=== PATIENT | female | born 1950 | race Caucasian/White ===

== ENCOUNTER 2016-04-15 05:22 | Emergency (ER) | payer OTHER ==
[~2016-04-15] VITALS: Ht 167.6 cm; Wt 86.4 kg
[~2016-04-15 05:22] MED LIST: ACT300 PO; ASPI325T39 PO; CLS1 PO; DEXL60CA4 PO; MULT-506 PO; OMEG10007 PO
[2016-04-15 05:27] VITALS: TEMP 36.5; Ht 167.6 cm; Wt 86.4 kg
[2016-04-15] MEDS ORDERED: ACETAMINOPHEN 500 MG TAB PO STA (05:37)
[2016-04-15] MEDS ORDERED: DiphenhydrAMINE HCL 50 MG/ML VIAL IV STA (05:37)
[2016-04-15] MEDS ORDERED: KETOROLAC TROMETHAMINE 30 MG/ML VIAL IV STA (05:37)
[2016-04-15] MEDS ORDERED: PROCHLORPERAZINE 5 MG/ML 2 ML VIAL IV STA (05:37)
[2016-04-15] MEDS ORDERED: SODIUM CHLORIDE 0.9% 1000ML 1,000 ML IV STA (05:37)
--- NOTE | 2016-04-15 05:42 | EMERGENCY ROOM VISIT NOTE ---
History Report prepared by Johnathan: Janeth Nieto Under the Supervision of: Dr. Wang Hinds M.D. First contact with patient: 05:27 Chief Complaint: HEADACHE Stated Complaint: HEADACHE,NAUSEA History of Present Illness The patient is a 65 year old female who presents to the Emergency Room with complaints of a constant headache beginning [employer]. The patient woke up this morning with a headache in the back of her head. She describes it as severe and rates her pain as a 6/10. She reports some double vision and nausea. She also had "a funny taste" in her mouth. She took her blood pressure and it was slightly elevated at 180/110. The patient denies any numbness or weakness of the extremities. She does not have a history of migraines. Source of History: patient Onset: [employer] Position: head Symptom Intensity: 6/10 Timing: constant Associated Symptoms: + nausea, No numbness, No weakness Note: Pt notes double vision. Review of Systems See HPI for pertinent positives & negatives. A total of 10 systems reviewed and were otherwise negative. Past Medical & Surgical Medical Problems: (1) GERD (gastroesophageal reflux disease) (2) Hyperlipemia Surgical Problems: (1) History of cholecystectomy (2) History of hysterectomy (3) History of neck surgery Family History Hypertension Social History Smoking Status: Never Smoker Alcohol Use: none Drug Use: none Marital Status: Housing Status: lives with family Occupation Status: other Current/Historical Medications Scheduled Aspirin (Aspirin Ec), 325 MG PO BID Colestipol Hcl (Colestid *), 1 GM PO BID Dexlansoprazole (Dexilant), 60 MG PO DAILY Fish Oil ([place]-3), 1 CAP PO DAILY Multivitamin (Multivitamin), 1 TAB PO DAILY Pediatric Multiple Vitamin W/ (Flintstones Gummies), 2 PO DAILY Ursodiol (Actigall *), 600 MG PO BID Scheduled PRN Clonidine Hcl (Catapres), 1 TAB PO BID PRN for BP > 160 Hydrocodone/Acetaminophen 5MG/325MG ([place] 5MG/325MG), 1 TAB PO DAILY PRN for Pain Allergies Coded Allergies: Adhesives (Verified Allergy, Unknown, RASH, 01/07/15) Latex1 -Allergic Contact Dermititis (Verified Allergy, Unknown, UNKNOWN, 01/07/15) Nitrofurantoin (Verified Adverse Reaction, Unknown, STOMACH UPSET, ) Physical Exam Vital Signs Date Time Temp Pulse Resp B/P Pulse Ox O2 Delivery O2 Flow Rate FiO2 04/15/16 06:48 80 20 140/95 96 Room Air 04/15/16 06:41 82 20 159/98 96 Room Air 04/15/16 05:27 36.5 96 20 172/109 96 Room Air Physical Exam CONSTITUTIONAL: Moderate painful distress. HEENT: No icterus, moist mucous membranes NECK: No meningismus, trachea is midline. CARDIOVASCULAR: Regular rate, normal perfusion RESPIRATORY: Unlabored breathing. Clear to auscultation. GASTROINTESTINAL: Non-tender GENITOURINARY: No flank tenderness MUSCULOSKELETAL: Full range of motion NEUROLOGIC: No acute gross focal deficits. PSYCHIATRIC: Normal affect SKIN: Normal for ethnicity. Medical Decision & Procedures ER Provider Diagnostic Interpretation: Radiology results as stated below per my review and radiologist interpretation. CT HEAD: No ICH, mass effect or edema. No evidence of acute cortical stroke. Visualized sinuses and mastoid air cells are clear. Radiologist: Steve Smith MD Laboratory Results 04/15/16 05:45 Red Blood Count 4.87, Mean Corpuscular Volume 87.9, Mean Corpuscular Hemoglobin 30.8, Mean Corpuscular Hemoglobin Concent 35.0, Mean Platelet Volume 9.6, Neutrophils (%) (Auto) 53.6, Lymphocytes (%) (Auto) 35.6, Monocytes (%) (Auto) 8.2, Eosinophils (%) (Auto) 2.2, Basophils (%) (Auto) 0.2, Neutrophils # (Auto) 2.68, Lymphocytes # (Auto) 1.78, Monocytes # (Auto) 0.41, Eosinophils # (Auto) 0.11, Basophils # (Auto) 0.01 04/15/16 05:45 Test 04/15/16 05:45 White Blood Count 5.00 K/uL (4.8-10.8) Red Blood Count 4.87 M/uL (4.2-5.4) Hemoglobin 15.0 g/dL (12.0-16.0) Hematocrit 42.8 % (37-47) Mean Corpuscular Volume 87.9 fL (80-100) Mean Corpuscular Hemoglobin 30.8 pg (25-34) Mean Corpuscular Hemoglobin Concent 35.0 g/dl (32-36) Platelet Count 194 K/uL (130-400) Mean Platelet Volume 9.6 fL (7.4-10.4) Neutrophils (%) (Auto) 53.6 % Lymphocytes (%) (Auto) 35.6 % Monocytes (%) (Auto) 8.2 % Eosinophils (%) (Auto) 2.2 % Basophils (%) (Auto) 0.2 % Neutrophils # (Auto) 2.68 K/uL (1.4-6.5) Lymphocytes # (Auto) 1.78 K/uL (1.2-3.4) Monocytes # (Auto) 0.41 K/uL (0.11-0.59) Eosinophils # (Auto) 0.11 K/uL (0-0.5) Basophils # (Auto) 0.01 K/uL (0-0.2) RDW Standard Deviation 40.6 fL (36.4-46.3) RDW Coefficient of Variation 12.6 % (11.5-14.5) Immature Granulocyte % (Auto) 0.2 % Immature Granulocyte # (Auto) 0.01 K/uL (0.00-0.02) Anion Gap 10.0 mmol/L (3-11) Est Creatinine Clear Calc Drug Dose 67.1 ml/min Estimated GFR () 76.7 Estimated GFR (Non- 66.2 BUN/Creatinine Ratio 11.5 (10-20) Calcium Level 9.0 mg/dl (8.5-10.1) Labs reviewed by ED physician. Medications Administered Medications (Trade) Dose Ordered Sig/Ana Rosa Route Start Time Stop Time Status Last Admin Dose Admin Acetaminophen 1000 mg 1,000 mg NOW STAT PO 04/15/16 05:37 04/15/16 05:39 DC 04/15/16 05:56 1,000 MG Sodium Chloride (Nss 1000ml) 1,000 ml @ 0 mls/hr Q0M STAT IV 04/15/16 05:37 04/15/16 05:39 DC 04/15/16 05:55 999 MLS/HR Prochlorperazine Edisylate (Compazine Inj) 10 mg NOW STAT IV 04/15/16 05:37 04/15/16 05:39 DC 04/15/16 05:55 10 MG Diphenhydramine HCl (Benadryl Inj) 25 mg NOW STAT IV 04/15/16 05:37 04/15/16 05:39 DC 04/15/16 05:55 25 MG Ketorolac Tromethamine (Toradol Inj) 15 mg NOW STAT IV 04/15/16 05:37 04/15/16 05:39 DC 04/15/16 05:55 15 MG ECG Indication: nausea Rate (beats per minute): 80 Rhythm: normal sinus Findings: nonspecific-ST abn, other (normal axis ) ED Course 05: Past medical records reviewed. The patient was evaluated in room A2. A complete history and physical examination was performed. 0537: Toradol 15 mg IV, Benadryl 25 mg IV, Compazine 10 mg IV, NSS 1000 ml IV wide open, Tylenol 1000 mg PO 0641: I reassessed the patient at this time. She is feeling better and resting comfortably. Her symptoms have resolved. I discussed the results and treatment plan with the patient. I answered all pertaining questions that she had. She expressed understanding and verbalized agreement. The patient will be discharged home. Medical Decision Differential diagnoses includes intracranial bleed, migraine, stroke. 65-year-old presents to the emergency department complaining of moderate headache which awoke her from sleep. She is concerned about high blood pressure and it was noted to be 170/100 on arrival. She was medicated for pain on reexamination at 6:30 AM she reports her symptoms have resolved. Review of old pressure 150/100. I discussed the importance of taking Tylenol motion every 6 hours as needed for pain and a prescription for clonidine 0.1 mg when necessary systolic blood pressure greater than 160 was provided. She understands to return the emergency room for any worsening or worrisome symptoms such as focal numbness weakness with difficulty speaking. She understands to follow-up with her doctor this week. Impression Primary Impression: Headache Additional Impression: Hypertension Scribe Attestation The scribe's documentation has been prepared under my direction and personally reviewed by me in its entirety. I confirm that the note above accurately reflects all work, treatment, procedures, and medical decision making performed by me. Departure Information Dispostion Home / Self-Care Prescriptions Clonidine Hcl (CATAPRES) 0.1 Mg Tab 1 TAB PO BID Y for BP > 160 for 10 Days, #20 TAB 1 Refill Prov: Wang Hinds MD 04/15/16 Referrals Mali Hernadez M.D. (PCP) Olga Stover D.OFiorella Forms HOME CARE DOCUMENTATION FORM, IMPORTANT VISIT INFORMATION Patient Instructions ED Hypertension Poss, Headache Pain, My [facility] Health Problem Qualifiers Primary Impression: Headache Headache type: unspecified Headache chronicity pattern: acute headache Intractability: not intractable Qualified Codes: R51 - Headache Additional Impression:
[2016-04-15 05:58] LABS: BASO % 0.2 %; BASO ABS # 0.01 K/uL (0-0.2); COMPLETE YES; EOS % 2.2 %; HEMATOCRIT 42.8 % (37-47); IG% 0.2 %; LYMPH % 35.6 %; LYMPH ABS # 1.78 K/uL (1.2-3.4); MEAN CELL VOLUME 87.9 fL (80-100); MEAN CORPUSCULAR HEMOGLOBIN 30.8 pg (25-34); MEAN PLATELET VOLUME 9.6 fL (7.4-10.4); MONO % 8.2 %; NEUT % 53.6 %; PLATELET COUNT 194 K/uL (130-400); RED BLOOD COUNT 4.87 M/uL (4.2-5.4)
[2016-04-15 06:28] LABS: BUN/CREATININE RATIO 11.5 (10-20); CREATININE 0.9 mg/dl (0.60-1.20); POTASSIUM 3.7 mmol/L (3.5-5.1)
[2016-04-15] MEDS ORDERED: CLON0.1T12 PO (06:44)
[2016-04-15] MEDS ORDERED: HYDR-5688 PO (06:47)
[2016-04-15 06:48] VITALS: BP 140/95; PULSE 80; O2SAT 96
[2016-04-15] MEDS ORDERED: PEDICHW53 PO (06:51)
[2016-04-15] MEDS ORDERED: PROP15TA PO (06:53)
[2016-04-15] MEDS ORDERED: OMEG1CHW PO (06:55)
--- NOTE | 2016-04-15 07:24 | DIAGNOSTIC IMAGING REPORT ---
HEAD CT NONCONTRAST CT DOSE: 614.27 mGy.cm HISTORY: Mental status change CONTE TECHNIQUE: Multiaxial CT images of the head were performed without the use of intravenous contrast. Comparison: None. Findings: The paranasal sinuses and mastoid air cells are clear. The calvarium and skull base are intact. The ventricles and sulci are within normal limits. There is no mass, hematoma, midline shift, or acute infarct. Impression: No acute intracranial abnormality. Electronically signed by: Zach Matos M.D. 04/15/2016 7:22 AM Dictated Date/Time: 04/15/2016 7:22 AM
== END 2016-04-15 06:56 | disposition home or self-care (01) ==
LOC: C.EDB 05:23 → C.EDA 06:56
DX: R51 Headache (principal); I10 Essential (primary) hypertension; H53.2 Diplopia; R11.0 Nausea; K21.9 Gastro-esophageal reflux disease without esophagitis; E78.5 Hyperlipidemia, unspecified; Z79.82 Long term (current) use of aspirin; Z79.899 Other long term (current) drug therapy; Z88.8 Allergy status to other drugs, medicaments and biological substances; Z91.040 Latex allergy status; Z82.49 Family history of ischemic heart disease and other diseases of the circulatory system

== ENCOUNTER 2016-05-13 16:24 | Emergency (ER) | payer OTHER ==
[~2016-05-13] VITALS: Ht 167.6 cm; Wt 85.3 kg
[~2016-05-13 16:24] MED LIST changes: -ASPI325T39 PO; +CLON0.1T12 PO; +HYDR-5688 PO; -MULT-506 PO; -OMEG10007 PO; +OMEG1CHW PO; +PEDICHW53 PO; +PROP15TA PO
[2016-05-13 16:27] VITALS: TEMP 36.7; Ht 167.6 cm; Wt 85.3 kg
[2016-05-13] MEDS ORDERED: MoRPHine SULFATE 4 MG/ML 1 ML CARP\\VIAL IV STA (17:01)
[2016-05-13] MEDS ORDERED: ONDANSETRON INJ 2 MG/ML 2 ML VIAL IV STA (17:01)
[2016-05-13] MEDS ORDERED: SODIUM CHLORIDE 0.9% 1000ML 1,000 ML IV STA (17:01)
[2016-05-13 17:08] LABS: COMPLETE YES; EOS % 1.9 %; IG% 0.3 %; LYMPH % 38.3 %; LYMPH ABS # 2.57 K/uL (1.2-3.4); MEAN CELL VOLUME 87.3 fL (80-100); MEAN CORPUSCULAR HGB CONC 35.5 g/dl (32-36); MEAN PLATELET VOLUME 9.7 fL (7.4-10.4); NEUT % 49.5 %; PLATELET COUNT 211 K/uL (130-400); RED BLOOD COUNT 5.04 M/uL (4.2-5.4); WHITE BLOOD COUNT 6.71 K/uL (4.8-10.8)
[2016-05-13] MEDS ORDERED: OPTIRAY 320 IV PRN (17:15)
[2016-05-13 17:17] LABS: URINE APPEARANCE CLEAR (CLEAR); URINE BILIRUBIN NEG (NEG); URINE COLOR YELLOW; URINE NITRITE NEG (NEG); URINE SPECIFIC GRAVITY 1.007 (1.000-1.030); UROBILINOGEN NEG (NEG); ZZUR CULT IF INDIC CLEAN CATCH YES
[2016-05-13 17:18] LABS: MANUAL MICROSCOPIC REQUIRED? NO; REVIEW REQ? NO
[2016-05-13] MEDS ORDERED: COLE1TAB5 PO (17:19)
[2016-05-13] MEDS ORDERED: ACT300 PO (17:19)
[2016-05-13 17:25] LABS: BUN/CREATININE RATIO 8.9 (10-20); CALCIUM 9.1 mg/dl (8.5-10.1); CREATININE 0.85 mg/dl (0.60-1.20); POTASSIUM 3.8 mmol/L (3.5-5.1)
--- NOTE | 2016-05-13 19:03 | DIAGNOSTIC IMAGING REPORT ---
CT SCAN OF THE ABDOMEN AND PELVIS WITH IV CONTRAST CLINICAL HISTORY: Left lower quadrant abdominal pain. COMPARISON STUDY: Abdominal CT dated 09/20/2008. TECHNIQUE: Following the IV administration of 115 cc of Optiray 320, CT scan of the abdomen and pelvis is performed from the lung bases to the proximal femora. Images are reviewed in the axial, sagittal, and coronal planes. IV contrast was administered without complication. Automated dose control exposure was utilized. CT DOSE: 577.52 mGy.cm FINDINGS: Lung bases: The heart is normal in size and without pericardial effusion. The lung bases are clear. Liver: The contrast-enhanced liver is enlarged, measuring 19.2 cm in length. The liver demonstrates diffusely diminished attenuation consistent with hepatic steatosis. There is minimal central intrahepatic biliary ductal dilatation. The hepatic veins and portal veins are patent. Gallbladder: Surgically absent noting clips in the gallbladder fossa. Spleen: Normal in size and attenuation. Pancreas: Unremarkable. Adrenal glands: Unremarkable. Kidneys: The contrast enhanced kidneys are normal in size and without hydronephrosis. The kidneys enhance symmetrically. Abdominal vasculature: The abdominal aorta is normal in course and caliber noting mild atherosclerotic calcification. Bowel: There is no bowel obstruction. There are scattered colonic diverticula without CT evidence of acute diverticulitis. The appendix is not identified. Peritoneum: There is no intraperitoneal free air or abdominal ascites. There is a small fat-containing umbilical hernia. There is a small lipoma in the musculature of the left lower back seen on image #63. Lymphadenopathy: None. Pelvic viscera: The bladder is normal as visualized. The uterus is surgically absent. No adnexal lesion is seen. There are numerous calcified pelvic phleboliths. Skeletal structures: The skeletal structures are osteopenic. There is mild to moderate lumbosacral spondylosis. There is reversal of the lumbar lordosis centered at L2. No lytic or blastic lesions are seen. IMPRESSION: 1. There are no acute infectious or inflammatory findings in the abdomen or pelvis. 2. Hepatomegaly and hepatic steatosis. 3. There are scattered colonic diverticula without CT evidence of acute diverticulitis. 4. Additional findings as above. Electronically signed by: Bar Florez M.D. 05/13/2016 7:02 PM Dictated Date/Time: 05/13/2016 6:56 PM
[2016-05-13 19:57] VITALS: BP 162/86; PULSE 66; O2SAT 97
--- NOTE | 2016-05-13 19:59 | EMERGENCY ROOM VISIT NOTE ---
History Report prepared by Johnathan: Ольга Mackay Under the Supervision of: Dr. Balwinder Ervin D.O. First contact with patient: 16:30 Chief Complaint: ABDOMINAL PAIN Stated Complaint: ABDOMINAL PAIN History of Present Illness The patient is a 65 year old female who presents to the Emergency Room with complaints of constant sharp lower abdominal pain beginning 3 days ago. The patient states that she has had this pain before when she had pancreatitis. She notes that she was not doing anything when it started. She complains of a loss of appetite and increased frequency of urination. The patient states that she gets UTI's often and thought she had one so she saw her doctor and it game back with a pathogen that she can't remember so she has been taking an antibiotic. She denies any chest pain, cough, runny nose, radiation of pain, burning with urination, bloody stool, and black stool. She notes that nothing makes her pain better or worse. The patient reports that she had a bladder infection 3 weeks ago and states that she has a history of cholecystectomy and hysterectomy. The patient rates her pain as a 5/10 in severity. She notes that she thinks she has had her appendix out but is not sure. She reports that nothing makes her pain better or worse. Source of History: patient Onset: 3 days ago Position: abdomen Symptom Intensity: 5/10 Quality: sharp Timing: constant Modifying Factors (Worsening): other (none) Modifying Factors (Relieving): other (noen) Associated Symptoms: No chest pain, No cough Note: She complains of a loss of appetite and increased frequency of urination. She denies any runny nose, radiation of pain, burning with urination, bloody stool, and black stool. Review of Systems See HPI for pertinent positives & negatives. A total of 10 systems reviewed and were otherwise negative. Past Medical & Surgical Medical Problems: (1) GERD (gastroesophageal reflux disease) (2) Hyperlipemia Surgical Problems: (1) History of cholecystectomy (2) History of hysterectomy (3) History of neck surgery Family History Hypertension Social History Smoking Status: Never Smoker Alcohol Use: none Drug Use: none Marital Status: Housing Status: lives with family Occupation Status: other Current/Historical Medications Scheduled Colestipol Hcl (Colestipol Hcl), 1 GM PO BID Dexlansoprazole (Dexilant), 60 MG PO DAILY Pyote 3 Fatty Acids-Pyote 6 FA (Pyote Dha), 2 TABS PO DAILY Pediatric Multiple Vitamin W/ (Flintstones Gummies), 2 PO DAILY Ursodiol (Ursodiol), 600 MG PO BID Allergies Coded Allergies: Adhesives (Verified Allergy, Unknown, RASH, 05/13/16) Latex1 -Allergic Contact Dermititis (Verified Allergy, Unknown, UNKNOWN, ) Nitrofurantoin (Verified Adverse Reaction, Unknown, STOMACH UPSET, 05/13/16) Physical Exam Vital Signs Date Time Temp Pulse Resp B/P Pulse Ox O2 Delivery O2 Flow Rate FiO2 05/13/16 19:57 66 18 162/86 97 05/13/16 17:59 70 20 122/85 98 Room Air 05/13/16 17:13 76 20 143/78 98 05/13/16 16:27 36.7 80 18 160/106 97 Room Air Physical Exam GENERAL: sitting up in bed, disheveled, uncomfortable EYE EXAM: normal conjunctiva OROPHARYNX: no exudate, no erythema, lips, buccal mucosa, and tongue normal and mucous membranes are moist NECK: supple, no nuchal rigidity, no adenopathy, non-tender LUNGS: Clear to auscultation. Normal chest wall mechanics HEART: no murmurs, S1 normal and S2 normal ABDOMEN: abdomen soft, tender to palpation infraumbilical to the LLQ, normo- active bowel sounds, no masses, no rebound or guarding. BACK: Back is symmetrical on inspection and there is no deformity, no midline tenderness, no CVA tenderness. SKIN: no rashes and no bruising UPPER EXTREMITIES: upper extremities are grossly normal. LOWER EXTREMITIES: No pitting edema. NEURO EXAM: Normal sensorium, cranial nerves II-XII grossly intact, normal speech, no gross weakness of arms, no gross weakness of legs. Medical Decision & Procedures ER Provider Diagnostic Interpretation: CT:Per my review, radiologist interpretation. CT SCAN OF THE ABDOMEN AND PELVIS WITH IV CONTRAST CT DOSE: 577.52 mGy.cm FINDINGS: Lung bases: The heart is normal in size and without pericardial effusion. The lung bases are clear. Liver: The contrast-enhanced liver is enlarged, measuring 19.2 cm in length. The liver demonstrates diffusely diminished attenuation consistent with hepatic steatosis. There is minimal central intrahepatic biliary ductal dilatation. The hepatic veins and portal veins are patent. Gallbladder: Surgically absent noting clips in the gallbladder fossa. Spleen: Normal in size and attenuation. Pancreas: Unremarkable. Adrenal glands: Unremarkable. Kidneys: The contrast enhanced kidneys are normal in size and without hydronephrosis. The kidneys enhance symmetrically. Abdominal vasculature: The abdominal aorta is normal in course and caliber noting mild atherosclerotic calcification. Bowel: There is no bowel obstruction. There are scattered colonic diverticula without CT evidence of acute diverticulitis. The appendix is not identified. Peritoneum: There is no intraperitoneal free air or abdominal ascites. There is a small fat-containing umbilical hernia. There is a small lipoma in the musculature of the left lower back seen on image #63. Lymphadenopathy: None. Pelvic viscera: The bladder is normal as visualized. The uterus is surgically absent. No adnexal lesion is seen. There are numerous calcified pelvic phleboliths. Skeletal structures: The skeletal structures are osteopenic. There is mild to moderate lumbosacral spondylosis. There is reversal of the lumbar lordosis centered at L2. No lytic or blastic lesions are seen. IMPRESSION: 1. There are no acute infectious or inflammatory findings in the abdomen or pelvis. 2. Hepatomegaly and hepatic steatosis. 3. There are scattered colonic diverticula without CT evidence of acute diverticulitis. 4. Additional findings as above. Electronically signed by: Bar Florez M.D. 05/13/2016 7:02 PM Dictated Date/Time: 05/13/2016 6:56 PM Laboratory Results 05/13/16 16:50 Red Blood Count 5.04, Mean Corpuscular Volume 87.3, Mean Corpuscular Hemoglobin 31.0, Mean Corpuscular Hemoglobin Concent 35.5, Mean Platelet Volume 9.7, Neutrophils (%) (Auto) 49.5, Lymphocytes (%) (Auto) 38.3, Monocytes (%) (Auto) 10.0, Eosinophils (%) (Auto) 1.9, Basophils (%) (Auto) 0.0, Neutrophils # (Auto ) 3.32, Lymphocytes # (Auto) 2.57, Monocytes # (Auto) 0.67, Eosinophils # (Auto ) 0.13, Basophils # (Auto) 0.00 05/13/16 16:50 Test 05/13/16 16:50 White Blood Count 6.71 K/uL (4.8-10.8) Red Blood Count 5.04 M/uL (4.2-5.4) Hemoglobin 15.6 g/dL (12.0-16.0) Hematocrit 44.0 % (37-47) Mean Corpuscular Volume 87.3 fL (80-100) Mean Corpuscular Hemoglobin 31.0 pg (25-34) Mean Corpuscular Hemoglobin Concent 35.5 g/dl (32-36) Platelet Count 211 K/uL (130-400) Mean Platelet Volume 9.7 fL (7.4-10.4) Neutrophils (%) (Auto) 49.5 % Lymphocytes (%) (Auto) 38.3 % Monocytes (%) (Auto) 10.0 % Eosinophils (%) (Auto) 1.9 % Basophils (%) (Auto) 0.0 % Neutrophils # (Auto) 3.32 K/uL (1.4-6.5) Lymphocytes # (Auto) 2.57 K/uL (1.2-3.4) Monocytes # (Auto) 0.67 K/uL (0.11-0.59) Eosinophils # (Auto) 0.13 K/uL (0-0.5) Basophils # (Auto) 0.00 K/uL (0-0.2) RDW Standard Deviation 42.0 fL (36.4-46.3) RDW Coefficient of Variation 13.2 % (11.5-14.5) Immature Granulocyte % (Auto) 0.3 % Immature Granulocyte # (Auto) 0.02 K/uL (0.00-0.02) Urine Color YELLOW Urine Appearance CLEAR (CLEAR) Urine pH 6.0 (4.5-7.5) Urine Specific [place] 1.007 (1.000-1.030) Urine Protein NEG (NEG) Urine Glucose (UA) NEG (NEG) Urine Ketones NEG (NEG) Urine Occult Blood NEG (NEG) Urine Nitrite NEG (NEG) Urine Bilirubin NEG (NEG) Urine Urobilinogen NEG (NEG) Urine Leukocyte Esterase LARGE (NEG) Urine WBC (Auto) >30 /hpf (0-5) Urine RBC (Auto) 0-4 /hpf (0-4) Urine Hyaline Casts (Auto) 1-5 /lpf (0-5) Urine Epithelial Cells (Auto) 10-20 /lpf (0-5) Urine Bacteria (Auto) NEG (NEG) Urine Test NEG (NEG) Anion Gap 10.0 mmol/L (3-11) Est Creatinine Clear Calc Drug Dose 70.6 ml/min Estimated GFR () 82.2 Estimated GFR (Non- 70.9 BUN/Creatinine Ratio 8.9 (10-20) Calcium Level 9.1 mg/dl (8.5-10.1) Total Bilirubin 0.5 mg/dl (0.2-1) Direct Bilirubin 0.1 mg/dl (0-0.2) Aspartate Amino Transf (AST/SGOT) 26 U/L (15-37) Alanine Aminotransferase (ALT/SGPT) 40 U/L (12-78) Alkaline Phosphatase 98 U/L (45-117) Total Protein 7.9 gm/dl (6.4-8.2) Albumin 4.0 gm/dl (3.4-5.0) Lipase 224 U/L (73-393) Laboratory results per my review. Medications Administered Medications (Trade) Dose Ordered Sig/Ana Rosa Route Start Time Stop Time Status Last Admin Dose Admin Sodium Chloride (Nss 1000ml) 1,000 ml @ 999 mls/hr Q1H1M STAT IV 05/13/16 17:01 05/13/16 18:01 DC 05/13/16 17:06 999 MLS/HR Morphine Sulfate (MoRPHine SULFATE INJ) 4 mg NOW STAT IV 05/13/16 17:01 05/13/16 17:03 DC 05/13/16 17:08 4 MG Ondansetron HCl (Zofran Inj) 4 mg NOW STAT IV 05/13/16 17:01 05/13/16 17:03 DC 05/13/16 17:07 4 MG ED Course ED COURSE: Vital signs were reviewed and normal The patients medical record was reviewed The above diagnostic studies were performed and reviewed. ED treatments and interventions as stated above. 1630: The patient was evaluated in room B5. A complete history and physical examination was performed. 1701: Zofran Inj 4mg IV, Morphine Sulfate 4mg IV, Sodium Chloride 1000 ml @ 999 mls/hr IV. 1943: I reevaluated the patient. She is feeling better. 1999: Upon reevaluation, the patient is hemodynamically stable.I discussed my findings with the patient and she understands and agrees with the treatment plan. Based on the patients age, coexisting illnesses, exam and lab findings the decision to treat as an outpatient was made. The patient remained stable while under my care. The patient appeared well at the time of discharge. Medical Decision Differential diagnoses includes but is not limited to gastritis, peptic ulcer disease, GERD, gallbladder disease, pancreatitis, small bowel obstruction, acute coronary syndrome, pericarditis, ischemic bowel, irritable bowel disease, irritable bowel syndrome, appendicitis, diverticulitis, malignancy, hernia, urinary tract infection, torsion, perforation, trauma, infectious. Patient is a 65-year-old female that presents the ER for abdominal pain. This is been present for the past 3 days in the lower abdomen. She has of this feels like her previous pancreatitis per she has a previous cholecystectomy and complete hysterectomy. She takes she also has her appendix removed. No fevers greater than 100.4, she is able to eat and drink without the culture. Labs show no significant leukocytosis or anemia. BMP along with LFTs, bilirubin and lipase is unremarkable. UA had a large amount of leukocytes with greater than 30 white cells. Patient notes that she has no dysuria, urgency or frequency which consistent with a UTI. She is urinary culture which is pending since Sunday. She does not want to start antibiotics at this time and would prefer to wait for urine culture. Patient was given a dose of morphine and fluids. She is discharged follow-up with her primary care doctor following a negative CT scan of her abdomen. Discussed with Pt concerning signs and symptoms to watch out for. Pt was instructed to follow up with their PCP and discussed with the patient their option to return to the ED at anytime for persistent or worsening symptoms. The appropriate anticipatory guidance and out-patient management, including indications for return to the emergency department, were explained at length to the patient and understood. Impression Primary Impression: Lower abdominal pain Scribe Attestation The scribe's documentation has been prepared under my direction and personally reviewed by me in its entirety. I confirm that the note above accurately reflects all work, treatment, procedures, and medical decision making performed by me. Departure Information Dispostion Home / Self-Care Referrals Olga Stover D.O. (PCP) Forms HOME CARE DOCUMENTATION FORM, IMPORTANT VISIT INFORMATION Patient Instructions Abdominal Pain - [facility], [facility] Additional Instructions Please follow up with your primary care doctor with in the next 24 hours. Any worsening of your symptoms, please return to the ED immediately. This includes fevers greater than 100.4, persistent nausea vomiting, worsening pain, passing out, blood in her stool, or any other concerning signs or symptoms from your standpoint.
== END 2016-05-13 19:57 | disposition home or self-care (01) ==
LOC: C.EDB 16:25
DX: R10.30 Lower abdominal pain, unspecified (principal); K21.9 Gastro-esophageal reflux disease without esophagitis; E78.5 Hyperlipidemia, unspecified; Z79.899 Other long term (current) drug therapy

== ENCOUNTER 2018-11-02 11:41 | Observation (INO) ==
--- OUTSIDE RECORDS SUMMARY | 2018-11-02 11:44 | External Medical Summary | Continuity of Care Document ---
:1950 Author Name Meera Billy Address Unavailable Unavailable , Care Team Providers Name Role Phone Moise Billy Unavailable [email or web address] [email or web address], A Unavailable Unavailable Unavailable Unavailable Unavailable Problems Cutaneous skin tags (701.9) (L91.8) Seborrheic dermatitis (690.10) (L21.9) Actinic keratosis (702.0) (L57.0) Allergies and Adverse Reactions No Known Drug Allergies (Allergy) Medications Dexilant CPDR Refills: 0 Ursodiol TABS Refills: 0 Colestipol HCl TABS Refills: 0 Ketoconazole 2 % External Shampoo; USE 2X/WEEK CHATO Da Silva Start: 03-Aug-2016 Quantity: 1 120 ML Bottle Refills: 2 Ketoconazole 2 % External Shampoo; USE 2X/WEEK Mirta Phipps Start: 03-Aug-2016 Quantity: 1 120 ML Bottle Refills: 5 Procedures Procedures not documented Immunizations Immunizations not documented Plan of Treatment Planned Observations Planned Goals not documented Results No Known Results Results not documented Encounters Appointment; Zach Phipps M.D. 18-Dec-2016 14:10 Encounter Diagnosis: Problem not documented
[2018-11-02] MEDS ORDERED: ASPIRIN CHEW 324 MG PO STA (11:53)
[2018-11-02 12:14] LABS: Basophils # (auto) 0.02 K/uL (0-0.2); Basophils % (auto) 0.3 %; Eosinophils # (auto) 0.17 K/uL (0-0.5); Eosinophils % (auto) 2.7 %; Hematocrit (blood only) 45.8 % (37-47); Hemoglobin 15.8 g/dL (12.0-16.0); Immature Granulocytes # (auto) 0.01 K/uL (0.00-0.02); Immature Granulocytes % (auto) 0.2 %; Lymphocytes # (auto) 2.46 K/uL (1.2-3.4); Lymphocytes % (auto) 38.6 %; Mean Corpuscular Hemoglobin 31.1 pg (25-34); Mean Corpuscular Hgb Conc 34.5 g/dL (32-36); Mean Corpuscular Volume 90.2 fL (80-100); Mean Platelet Volume 9.8 fL (7.4-10.4); Monocytes # (auto) 0.49 K/uL (0.11-0.59); Monocytes % (auto) 7.7 %; Neutrophils # (auto) 3.22 K/uL (1.4-6.5); Neutrophils % (auto) 50.5 %; Platelet Count 213 K/uL (130-400); RDW Standard Deviation 42.5 fL (36.4-46.3); Red Blood Count 5.08 M/uL (4.2-5.4); White Blood Count 6.37 K/uL (4.8-10.8)
--- NOTE | 2018-11-02 12:24 | XRay Report ---
XR chest 1V portable CLINICAL HISTORY: Chest Pain COMPARISON STUDY: Chest radiograph August 14, 2012. FINDINGS: Lung volumes are normal. Lungs are clear. There is no pneumothorax or pleural effusion. Car diac size is normal. Mediastinal contours are normal. There is no evidence for pulmonary edema. Patie nt is mildly rotated. IMPRESSION: No acute cardiopulmonary findings. Electronically signed by: Mohit Leos M.D. 11/02/2018 12:23 PM
[2018-11-02 12:31] LABS: Alanine Aminotransferase 56 U/L (12-78); Albumin Level 4.2 gm/dl (3.4-5.0); Aspartate Aminotransferase 46 U/L (15-37); BUN Creatinine Ratio 8.3 (10-20); Blood Urea Nitrogen 8 mg/dl (7-18); Calcium 9.3 mg/dl (8.5-10.1); Carbon Dioxide 27 mmol/L (21-32); Chloride 106 mmol/L (98-107); Creatinine Clr Calc Pharmacy 59.7 ml/min; Est GFR (African American) 71.2; Est GFR (Non-African American) 61.5; Glucose 101 mg/dl (70-99); Lipase 254 U/L (73-393); Potassium 3.9 mmol/L (3.5-5.1); Sodium 141 mmol/L (136-145)
[2018-11-02 12:36] LABS: Alkaline Phosphatase 111 U/L (45-117); Bilirubin,Total 0.4 mg/dl (0.2-1); Globulin 4.2 gm/dl (2.5-4.0); Total Protein 8.4 gm/dl (6.4-8.2); Troponin I < 0.015 ng/ml (0-0.045)
[2018-11-02 12:59] LABS: D Dimer 390 ug/L FEU (0-500); Partial Thromboplastin Ratio 0.9; Partial Thromboplastin Time 24.5 Seconds (21.0-31.0)
[2018-11-02] MEDS ORDERED: GI COCKTAIL ED USE PO ONE (13:39)
--- NOTE | 2018-11-02 15:38 | History & Physical Report ---
Date of Service November 02, 2018 Assessment & Plan (1) Chest pain: Atypical symptoms since exerting herself yesterday that may be concerning for ACS. She describes the recent fatigue, and chest pressure sensation that is constant since yesterday where when she takes a deep breath, she feels like she can't fully inflate her lungs. She describes the sensation of choking associated with this. No other associated symptoms are present. Age and dyslipidemia are risk factors. No early CAD in family but father did have an CT in his 70s, She is a lifelong nonsmoker who is active. Initial workup is negative for acute ischemia including trop and EKG, however, symptoms are still present. No nitro has been given and she is opting for morphine to try. Cont Nitro PRN and Morphine PRN chest pressure symptoms. Cardiology consulted. Patient had recent DSE in 02/2018, so defer to them for the need for further risk stratification. Monitor on telemetry for any arrhythmias that may explain her palpitations. Will also cont ASA, declines statin. (2) Heart palpitations: Monitor on telemetry overnight, may consider beta chris therapy, but would defer to Cardiology on that. (3) IBS (irritable bowel syndrome): Takes Bentyl PRN and Colestipol PRN. (4) GERD (gastroesophageal reflux disease): Suffers from esophageal spasms which are much different in severity and nature of pain. No recent spasms present. Uses Dexilant for acid suppression. (5) DVT prophylaxis: Lovenox Full Dispo-monitor on telemetry overnight. To home when medically stable. Meena Roque DO [facility] Hospitalist History of Present Illness Chief Complaint: chest pressure Primary Care Provider: Olga Stover DO 68 yo F nonsmoker presents with a sensation of chest pressure with radiation to throat and a feeling of not being able to take a complete deep breath despite no overt hypoxia. This is in the setting of more profound fatigue since two weeks ago. She has noticed the sensation of pressure since yesterday and it is still present. There is no lightheadedness, nausea, vomiting, pain. Palpitations are being reported. She does state that her symptoms are worse with exertion, but beyond that they are poorly described. She doesn't feel there is any relationship to food and she denies that this is the same pain as an esophageal spasm. She has a h/o GERD and takes Dexilant for this. She has a h/o IBS controlled with diet and Bentyl and Colestipol. She has a h/o recurrent choledocholithiasis and had a perforation as a complication of ERCP in 2007, which has made her skittish since that time. She has taken domperidone in the past for symptom relief and is now on ursodiol. She has a h/o idiopathic gastroparesis. In the ER, EKG is nonischemic and troponin is negative. ASA and GI cocktail were given without successful relief of her symptoms. Allergies Allergy/AdvReac Type Severity Reaction Status Date / Time adhesive Allergy Unknown RASH Verified 11/02/18 12:34 latex Allergy Unknown UNKNOWN Verified 11/02/18 12:34 nitrofurantoin AdvReac Unknown STOMACH Verified 11/02/18 12:34 UPSET Zivxnzk-Ukz-Yvl Reductase AdvReac Muscle Pain Unverified 11/02/18 12:35 Inhibitor Home Medications Home Medications Medication Instructions Recorded Confirmed Type colestipol 1 g PO BID 11/02/18 11/02/18 History dexlansoprazole [Dexilant] 60 mg PO DAILY 11/02/18 11/02/18 History dicyclomine 10 mg PO QID PRN 11/02/18 11/02/18 History ursodiol 600 mg PO BID 11/02/18 11/02/18 History Past Med/Surg History Medical History Acid reflux (Chronic) Esophageal spasm (Chronic) IBS (irritable bowel syndrome) (Chronic) Choledocholithiasis Recurrent, 09/2007 -ERCP and papillotomy that revealed small amounts of biliary sludge. This was complicated by small retroperitoneal perforation that resolved with conservative treatment. Her LFT's normalized, subsequent use of domperidone and then ursodiol for symptoms. Surgical History H/O cervical spine surgery History of ERCP History of arthroplasty of left knee S/P NANCY-BSO S/P laparoscopic colectomy Family History Father Coronary heart disease Mother Ventricular tachycardia Social History Preferred Language: [place] Feels Safe at Home: Yes Smoking Status: Never smoker Review of Systems Review of Systems: All systems reviewed & are unremarkable except as noted in HPI & below Physical Exam Physical Exam: CONSTITUTIONAL: WNWD, vitals as above, generally well- appearing EYES: PERRL, normal conjunctivae, no scleral icterus ENT: oropharynx clear, MMM RESPIRATORY: clear to auscultation bilaterally, no crackles, rales or wheezes, normal respiratory effort CARDIOVASCULAR: regular rate and rhythm, S1 and 2 heard without murmurs, gallops or rubs, no JVD, no peripheral edema CHEST: inspection of chest was normal GASTROINTESTINAL: soft, nontender, nondistended MUSCULOSKELETAL: strength 5/5 throughout, head is normocephalic and atraumatic, neck supple, normal palpation of chest wall without tenderness SKIN: warm and dry NEUROLOGIC: CN 2-12 grossly intact, no sensory deficit, normal cognition, normal speech, no tremor. No gross focal deficits. PSYCHIATRIC: alert cooperative and oriented to person, place and time. Results & Data Vital Signs (Past 12 Hours) Vital Signs Temp Pulse Resp BP Pulse Ox 11/02/18 14:00 65 14 133/70 97 11/02/18 13:00 66 18 134/88 98 11/02/18 12:30 81 14 130/83 94 11/02/18 12:12 70 19 140/77 99 11/02/18 12:04 63 18 99 11/02/18 11:43 36.7 C 63 18 153/96 H 99 Laboratory Results Short CBC 11/02/18 Range/Units 12:04 WBC 6.37 (4.8-10.8) K/uL Hgb 15.8 (12.0-16.0) g/dL Hct 45.8 (37-47) % Plt Count 213 (130-400) K/uL BMP 11/02/18 12:04 Sodium 141 Potassium 3.9 Chloride 106 Carbon Dioxide 27 BUN 8 Creatinine 0.94 Glucose 101 H Calcium 9.3 Cardiac Enzymes 11/02/18 11/02/18 Range/Units 12:04 13:47 Troponin I < 0.015 0.020 (0-0.045) ng/ml Liver Function 11/02/18 Range/Units 12:04 Total Bilirubin 0.4 (0.2-1) mg/dl AST 46 H (15-37) U/L ALT 56 (12-78) U/L Alkaline Phosphatase 111 (45-117) U/L Albumin 4.2 (3.4-5.0) gm/dl Diagnostic Findings XR chest 1V portable CLINICAL HISTORY: Chest Pain COMPARISON STUDY: Chest radiograph August 14, 2012. FINDINGS: Lung volumes are normal. Lungs are clear. There is no pneumothorax or pleural effusion. Cardiac size is normal. Mediastinal contours are normal. There is no evidence for pulmonary edema. Patient is mildly rotated. IMPRESSION: No acute cardiopulmonary findings. Medications Administered GI cocktail ASA 324 ECG Rhythm: normal sinus Code Status & VTE Plan Code Status full VTE Prophylaxis Plan VTE Prophylaxis will be ordered: Yes (1) Chest pain Chest pain type: unspecified Qualified Code(s): R07.9 - Chest pain, unspecified
--- NOTE | 2018-11-02 15:42 | Emergency Department Note ---
Entered by Rachel Davalos acting as a scribe for Juan Hernandez M.D. History of Present Illness General Chief complaint: Chest Pain Stated complaint: LIGHT HEADED, CHEST FLUTTERING Source: patient History of Present Illness Provider complaint: chest pain Onset (ago): day(s) (several ) Location: chest Pain Consistency: + constant Maximum Pain Intensity: 4 Quality: + other (heaviness) Associated symptoms: + cough, + shortness of breath and + other (+irregular heartbeat) The patient is a 68 year old female who presents to the Emergency Room with complaints of constant chest pain for the past several days. She notes that it feels like heaviness in her chest. She states that it is hard to catch her breath. She states that she has an occasional cough. The patient reports that she has shortness of breath when she goes up the stairs. The patient denies any leg swelling. She states that she feels like she a slightly irregular heartbeat. The patient states that she has a history of acid reflux, IBS, and esophageal spasm. She notes that she is unsure if she chest pain is related to that. The patient states that she has a family cardiac history. She denies any recent tra shekhar. She states that she is a nonsmoker. Home Medications Home Medications Medication Instructions Recorded Confirmed Type colestipol 1 g PO BID 11/02/18 11/02/18 History dexlansoprazole [Dexilant] 60 mg PO DAILY 11/02/18 11/02/18 History dicyclomine 10 mg PO QID PRN 11/02/18 11/02/18 History ursodiol 600 mg PO BID 11/02/18 11/02/18 History Allergies Allergy/AdvReac Type Severity Reaction Status Date / Time adhesive Allergy Unknown RASH Verified 11/02/18 12:34 latex Allergy Unknown UNKNOWN Verified 11/02/18 12:34 nitrofurantoin AdvReac Unknown STOMACH Verified 11/02/18 12:34 UPSET Jwigaun-Tko-Vvh Reductase AdvReac Muscle Pain Unverified 11/02/18 12:35 Inhibitor Past Med/Surg History Medical History Acid reflux (Chronic) Esophageal spasm (Chronic) IBS (irritable bowel syndrome) (Chronic) Choledocholithiasis Recurrent, 09/2007 -ERCP and papillotomy that revealed small amounts of biliary sludge. This was complicated by small retroperitoneal perforation that resolved with conservative treatment. Her LFT's normalized, subsequent use of domperidone and then ursodiol for symptoms. Surgical History H/O cervical spine surgery History of ERCP History of arthroplasty of left knee S/P NANCY-BSO S/P laparoscopic colectomy Family History Father Coronary heart disease Mother Ventricular tachycardia Social History Preferred Language: [place] Communication Ability: Effective Beliefs That Will Affect Care: None Current Living Situation: Spouse Other Information That Helps Us Care for You: No Feels Safe at Home: Yes Safety Concerns: Feels Safe At This Time Smoking Status: Never smoker Hx Alcohol Use: No Hx Substance Use: No Review of Systems See HPI for pertinent positives & negatives. and A total of 10 systems reviewed and were otherwise negative Physical Exam Vital Signs Vital Signs - 24 hr 11/02/18 11:43 11/02/18 12:04 11/02/18 12:12 Temperature 36.7 C Temperature Source Oral Sepsis Recent Fever Within 48 Hours No Sepsis New/Unexplained Change in Mental Status No Sepsis Action Taken by Nursing No Action Required Pulse Rate 63 63 70 Pulse Rate from SpO2 Sensor 67 Pulse Rhythm Regular Respiratory Rate 18 18 19 Respiratory Effort / Characteristics Non-Labored Spontaneous Non-Labored Spontaneous Respiratory Depth Normal Normal Blood Pressure 153/96 H 140/77 Blood Pressure Mean 115 98 Blood Pressure Position Sitting Pulse Oximetry 99 99 99 Oxygen Delivery Method Room Air Room Air Room Air 11/02/18 12:30 11/02/18 13:00 11/02/18 14:00 Temperature Temperature Source Sepsis Recent Fever Within 48 Hours Sepsis New/Unexplained Change in Mental Status Sepsis Action Taken by Nursing Pulse Rate 81 66 65 Pulse Rate from SpO2 Sensor 77 66 64 Pulse Rhythm Respiratory Rate 14 18 14 Respiratory Effort / Characteristics Respiratory Depth Blood Pressure 130/83 134/88 133/70 Blood Pressure Mean 98 103 91 Blood Pressure Position Pulse Oximetry 94 98 97 Oxygen Delivery Method Room Air Room Air 11/02/18 15:30 08/24/19 15:37 Temperature Temperature Source Sepsis Recent Fever Within 48 Hours Sepsis New/Unexplained Change in Mental Status Sepsis Action Taken by Nursing Pulse Rate 80 72 Pulse Rate from SpO2 Sensor 75 73 Pulse Rhythm Respiratory Rate 15 18 Respiratory Effort / Characteristics Respiratory Depth Blood Pressure 150/101 H 136/74 Blood Pressure Mean 117 94 Blood Pressure Position Pulse Oximetry 99 94 Oxygen Delivery Method Room Air Room Air GENERAL: Awake, alert, fatigued-appearing, in no distress HENT: Normocephalic, atraumatic. EYES: Normal conjunctiva. Sclera non-icteric. RESPIRATORY: Clear to auscultation. No wheezes. Normal respiratory effort. CARDIAC: Normal rate. Irregular rhythm. Extremities warm and well perfused. GI: Soft, non-distended. No tenderness to palpation. No rebound or guarding. No masses. RECTAL: Deferred. MUSCULOSKELETAL: Atraumatic. Chest examination reveals no tenderness. LOWER EXTREMITIES: Calves are equal size bilaterally and non-tender. No edema NEURO: Normal sensorium. No sensory or motor deficits noted. No facial droop. SKIN: Warm and dry. No rash or jaundice noted. Course 1158: The patient was evaluated in room C9, and a complete history and physical examination were performed. 1455: I discussed the patient's case with Dr. Canales- [facility] Cardiology, he recommends the patient be accepted for further evaluation. 1514: I discussed the patient's case with Hanh Gunter, Dr. Sony Gunter Hospitalist, will accept the patient for further evaluation. Administered Medications Discontinued Medications Al Hydrox/Mg Hydrox/Simethicone () 1 dose PO ONE ONE Stop: 11/02/18 13:40 Last Admin: 11/02/18 13:49 Dose: 1 dose Documented by: [id number] Aspirin (Aspirin) 324 mg PO NOW STA Stop: 11/02/18 11:54 Last Admin: 11/02/18 12:12 Dose: 324 mg Documented by: [id number] Morphine Sulfate (Morphine Sulfate) 2 mg IV NOW STA Stop: 11/02/18 16:46 Last Admin: 11/02/18 17:22 Dose: 2 mg Documented by: [id number] Medical Decision Making Differential Diagnosis Differential diagnosis: Etiologies such as cardiac ischemia, aortic dissection, pulmonary embolism, pneumonia, pneumothorax, musculoskeletal, infections, pericarditis, myocarditis, esophageal rupture, gastrointestinal, as well as others were entertained. Medical Records Attestation: I reviewed the patient's medical records. Home Medications Current Medication List: was personally reviewed by me Laboratory Data Attestation: I reviewed the patient's lab results. Result diagrams: 11/02/18 12:04 11/02/18 12:04 Lab Results 11/02/18 11/02/18 11/02/18 Range/Units 12:04 12:04 12:04 WBC 6.37 (4.8-10.8) K/uL RBC 5.08 (4.2-5.4) M/uL Hgb 15.8 (12.0-16.0) g/dL Hct 45.8 (37-47) % MCV 90.2 (80-100) fL MCH 31.1 (25-34) pg MCHC 34.5 (32-36) g/dL RDW Std Deviation 42.5 (36.4-46.3) fL RDW Coeff of Raisa 13.0 (11.5-14.5) % Plt Count 213 (130-400) K/uL MPV 9.8 (7.4-10.4) fL Immature Gran % (Auto) 0.2 % Neut % (Auto) 50.5 % Lymph % (Auto) 38.6 % [place] % (Auto) 7.7 % Eos % (Auto) 2.7 % Baso % (Auto) 0.3 % Immature Gran # (Auto) 0.01 (0.00-0.02) K/uL Neut # (Auto) 3.22 (1.4-6.5) K/uL Lymph # (Auto) 2.46 (1.2-3.4) K/uL [place] # (Auto) 0.49 (0.11-0.59) K/uL Eos # (Auto) 0.17 (0-0.5) K/uL Baso # (Auto) 0.02 (0-0.2) K/uL PT 10.0 (9.0-12.0) Seconds INR 1.0 (0.9-1.1) APTT 24.5 (21.0-31.0) Seconds PTT Ratio 0.9 D-Dimer 390 (0-500) ug/L FEU Sodium 141 (136-145) mmol/L Potassium 3.9 (3.5-5.1) mmol/L Chloride 106 (98-107) mmol/L Carbon Dioxide 27 (21-32) mmol/L Anion Gap 8.0 (3-11) BUN 8 (7-18) mg/dl Creatinine 0.94 (0.6-1.2) mg/dl Est Cr Clr Drug Dosing 59.7 ml/min Est GFR ( Amer) 71.2 Est GFR (Non-Af Amer) 61.5 BUN/Creatinine Ratio 8.3 L (10-20) Glucose 101 H (70-99) mg/dl Calcium 9.3 (8.5-10.1) mg/dl Total Bilirubin 0.4 (0.2-1) mg/dl AST 46 H (15-37) U/L ALT 56 (12-78) U/L Alkaline Phosphatase 111 (45-117) U/L Troponin I < 0.015 (0-0.045) ng/ml Total Protein 8.4 H (6.4-8.2) gm/dl Albumin 4.2 (3.4-5.0) gm/dl Globulin 4.2 H (2.5-4.0) gm/dl Albumin/Globulin Ratio 1.0 (0.9-2) Lipase 254 (73-393) U/L 11/02/18 Range/Units 13:47 WBC (4.8-10.8) K/uL RBC (4.2-5.4) M/uL Hgb (12.0-16.0) g/dL Hct (37-47) % MCV (80-100) fL MCH (25-34) pg MCHC (32-36) g/dL RDW Std Deviation (36.4-46.3) fL RDW Coeff of Raisa (11.5-14.5) % Plt Count (130-400) K/uL MPV (7.4-10.4) fL Immature Gran % (Auto) % Neut % (Auto) % Lymph % (Auto) % [place] % (Auto) % Eos % (Auto) % Baso % (Auto) % Immature Gran # (Auto) (0.00-0.02) K/uL Neut # (Auto) (1.4-6.5) K/uL Lymph # (Auto) (1.2-3.4) K/uL [place] # (Auto) (0.11-0.59) K/uL Eos # (Auto) (0-0.5) K/uL Baso # (Auto) (0-0.2) K/uL PT (9.0-12.0) Seconds INR (0.9-1.1) APTT (21.0-31.0) Seconds PTT Ratio D-Dimer (0-500) ug/L FEU Sodium (136-145) mmol/L Potassium (3.5-5.1) mmol/L Chloride (98-107) mmol/L Carbon Dioxide (21-32) mmol/L Anion Gap (3-11) BUN (7-18) mg/dl Creatinine (0.6-1.2) mg/dl Est Cr Clr Drug Dosing ml/min Est GFR ( Amer) Est GFR (Non-Af Amer) BUN/Creatinine Ratio (10-20) Glucose (70-99) mg/dl Calcium (8.5-10.1) mg/dl Total Bilirubin (0.2-1) mg/dl AST (15-37) U/L ALT (12-78) U/L Alkaline Phosphatase (45-117) U/L Troponin I 0.020 (0-0.045) ng/ml Total Protein (6.4-8.2) gm/dl Albumin (3.4-5.0) gm/dl Globulin (2.5-4.0) gm/dl Albumin/Globulin Ratio (0.9-2) Lipase (73-393) U/L Imaging Data Radiologist's Impression: Radiology results as stated below per my review and the radiologist's interpretation: XR chest 1V portable CLINICAL HISTORY: Chest Pain COMPARISON STUDY: Chest radiograph August 14, 2012. FINDINGS: Lung volumes are normal. Lungs are clear. There is no pneumothorax or pleural effusion. Cardiac size is normal. Mediastinal contours are normal. There is no evidence for pulmonary edema. Patient is mildly rotated. IMPRESSION: No acute cardiopulmonary findings. Electronically signed by: Mohit Leos M.D. 11/02/2018 12:23 PM ECG Data Attestation: I personally reviewed and interpreted this ECG as follows: Indication: chest pain Rate (beats per minute): 68 Rhythm: sinus with SA Findings: + other (lateral ST flatening, normal intervals); no PVC and no ST elevation Comparison ECG Date: no prior available Blood Pressure Blood Pressure Findings: Elevated blood pressure MDM Narrative Patient is a 68-year-old female with a past medical history of hyperlipidemia, GERD, prior cholecystectomy presenting today with complaint of chest pain with weakness fatigue for several days. Endorses some shortness of breath with exertion. Evidently was seen in the office yesterday EKG and labs and was called today and said she needed to come to the emergency department. Endorses palpitations for several days and again dyspnea on exertion. Pressure feeling across her central chest worse with deep breath. History of some gastric issues including IBS but states this feels different. No trauma reported. No leg s welling reported. No fevers. That this represents pneumonia pneumothorax. More suspicion this is acute dissection. Troponin was sent to help evaluate for cardiac ischemia. High-sensitivity troponin yesterday was detectable but within normal limits. Troponin here is negative. EKG here appears similar to yesterday with some nonspecific findings that appear stable. D-dimer sent to help exclude PE although there is no significant leg swelling or recent travel history. Not hypoxic here. Given full dose aspirin. CBC is unremarkable. No evidence of hepatitis or pancreatitis and electrolytes and kidney function appears stable. No evidence of troponin elevation at this time. Chest x-ray unremarkable. Patient given a GI cocktail to see if this would help with her symptoms. Discussed with the patient findings. Did discuss with her heart scoring which does place her at a moderate risk due to suspicious story, age, and weight and family history at a 4. This is moderate risk factor. Did complete a repeat EKG and troponin. EKG looks slightly better but troponin is nondetectable. Discussed with cardiology. EKG findings earlier are very minimal but with this change recommended observation overnight and resting echocardiogram. Again the patient did receive aspirin while here. Discussed with the patient she is agreeable to stay for further evaluation. [facility] hospitalist contacted. Impression & Plan Chest pain, IRENE (dyspnea on exertion) Discharge Plan Visit Data *Final* Discharge Date/Time: 11/02/18 17:48 Chief Complaint: Chest Pain Stated Complaint: LIGHT HEADED, CHEST FLUTTERING ED Provider: Juan Hernandez Discharge Problem: Chest pain, IRENE (dyspnea on exertion) Patient Disposition: Admitted As Inpatient Discharge Instructions Interventions: ED Discharge Assessment Last Done: 11/02/18 17:48 Discharge Problem: Chest pain Qualifiers: Chest pain type: unspecified Qualified Code(s): R07.9 - Chest pain, unspecified The scribe's documentation has been prepared under my direction and personally reviewed by me in its entirety. I confirm that the note above accurately r eflects all work, treatment, procedures, and medical decision making performed by me.
[2018-11-02] MEDS ORDERED: MoRPHine SULFATE 2 MG/ML CARP IV STA (16:45)
[2018-11-02] MEDS ORDERED: NITROGLYCERIN SL 0.4 MG/TAB TAB SL PRN (18:15)
[2018-11-02] MEDS ORDERED: ONDANSETRON INJ 2 MG/ML 2 ML VIAL IV PRN (18:15)
[2018-11-02] MEDS ORDERED: MoRPHine SULFATE 2 MG/ML CARP IV PRN (18:15)
[2018-11-02] MEDS ORDERED: ACETAMINOPHEN 325 MG TAB PO PRN (18:15)
[2018-11-02] MEDS ORDERED: POLYETHYLENE (MIRALAX) 17 GM PACK PO PRN (18:15)
[2018-11-02] MEDS ORDERED: DICYCLOMINE HCL 10 MG CAP PO PRN (20:40)
[2018-11-02] MEDS ORDERED: ZOLPIDEM TARTRATE 5 MG TAB PO PRN (20:49)
[2018-11-02] MEDS: URSODIOL 300 MG CAP PO SCH (20:59)
[2018-11-02] MEDS: ALUMINUM/MAGNESIUM SUSP 30 ML UDC PO PRN (20:59)
[2018-11-02] MEDS: PANTOprazole 40 MG TAB PO SCH (21:01)
[2018-11-02] MEDS: COLESTIPOL HCL 1 GM TAB PO SCH (21:01)
[2018-11-03 01:37] LABS: Hematocrit (blood only) 43.8 % (37-47); Hemoglobin 15.1 g/dL (12.0-16.0); Mean Corpuscular Hemoglobin 30.9 pg (25-34); Mean Corpuscular Hgb Conc 34.5 g/dL (32-36); Mean Corpuscular Volume 89.8 fL (80-100); Mean Platelet Volume 9.7 fL (7.4-10.4); Platelet Count 187 K/uL (130-400); RDW Standard Deviation 42.5 fL (36.4-46.3); Red Blood Count 4.88 M/uL (4.2-5.4)
[2018-11-03 01:54] LABS: BUN Creatinine Ratio 9.8 (10-20); Calcium 8.8 mg/dl (8.5-10.1); Creatinine Clr Calc Pharmacy 66.8 ml/min; Est GFR (African American) 81.6; Est GFR (Non-African American) 70.4; Potassium 3.8 mmol/L (3.5-5.1)
[2018-11-03] MEDS: PANTOprazole 40 MG TAB PO SCH (08:07)
[2018-11-03] MEDS: URSODIOL 300 MG CAP PO SCH (08:07)
[2018-11-03] MEDS ORDERED: ASPIRIN 81 MG ECTAB PO SCH (09:00)
[2018-11-03] MEDS ORDERED: ENOXAPARIN INJ 40 MG/0.4 ML SYR SQ SCH (09:00)
[2018-11-03] MEDS: COLESTIPOL HCL 1 GM TAB PO SCH (09:52)
--- NOTE | 2018-11-03 11:21 | Hospitalist Progress Note ---
Date of Service November 03, 2018 Assessment & Plan (1) Chest pain: As per admission :atypical symptoms since exerting herself yesterday that may be concerning for ACS. She describes the recent fatigue, and chest pressure sensation that is constant since yesterday where when she takes a deep breath, she feels like she can't fully inflate her lungs. She describes the sensation of choking associated with this. No other associated symptoms are present. Age and dyslipidemia are risk factors. No early CAD in family but father did have an [place] in his 70s, She is a lifelong nonsmoker who is active. Initial workup is negative for acute ischemia including trop and EKG, however, symptoms are still present. No nitro has been given and she is opting for morphine to try. Cont Nitro PRN and Morphine PRN chest pressure symptoms. Cardiology consulted. Patient had recent DSE in 02/2018, so defer to them for the need for further risk stratification. Monitor on telemetry for any arrhythmias that may explain her palpitations. Will also cont ASA, declines statin. 11/03 Denies any symptoms at rest Remains hemodynamically stable Serial EKG and troponins are negative Appreciate cardiology input and recommendation We will have her stress test and if that is negative she will be discharged home this afternoon (2) Heart palpitations: Monitor on telemetry overnight, may consider beta chris therapy, but would defer to Cardiology on that. No significant EKG abnormalities and no arrhythmias on monitor No more palpitation (3) IBS (irritable bowel syndrome): Takes Bentyl PRN and Colestipol PRN. (4) GERD (gastroesophageal reflux disease): Suffers from esophageal spasms which are much different in severity and nature of pain. No recent spasms present. Uses Dexilant for acid suppression. Denies any dyspeptic symptoms (5) DVT prophylaxis: Lovenox Full Dispo-monitor on telemetry overnight. To home when medically stable. Likely be discharged this afternoon following stress test Subjective 11/03 The patient was seen and examined in medical telemetry unit She was admitted with the atypical chest pain/angina equivalent She does not have any complaints at rest and she has been ruled out for any ACS She will have a stress test today and likely to go home after that if that is negative Review of Systems Review of Systems: All systems reviewed and are unremarkable except as noted below Cardiovascular: Additional Comments: Chest discomfort with exertion Physical Exam Physical Exam: Sitting at the age of the bed without any distress Constitutional: well developed and well nourished; no acute distress and not ill appearing Eyes: PERRL, conjunctivae normal, anicteric sclerae ENMT: external ear and nose normal, oropharynx normal Neck: trachea midline, no thyromegaly Respiratory: normal respiratory effort Auscultation: lungs clear to auscultation bilaterally Cardiovascular: Rate/Rhythm: regular rate and regular rhythm Heart Sounds: no murmur Gastrointestinal (Abdomen): Inspection/Auscultation: abdomen normal to inspection Percussion/Palpation: abdomen soft Musculoskeletal: No acute arthritis in any joints and no tenderness over costochondral junctions Neurologic: patellar DTR's 2+ bilat, sensation intact Lymphatic: no cervical or axillary lymphadenopathy Results & Data Vital Signs (Past 12 Hours) Vital Signs Temp Pulse Pulse Resp BP Pulse Ox 11/03/18 08:06 36.5 C 66 18 128/81 96 11/03/18 04:00 36.6 C 59 L 18 121/70 97 11/02/18 23:17 44 L Laboratory Results Short CBC 11/02/18 11/03/18 Range/Units 12:04 01:22 WBC 6.37 6.90 (4.8-10.8) K/uL Hgb 15.8 15.1 (12.0-16.0) g/dL Hct 45.8 43.8 (37-47) % Plt Count 213 187 (130-400) K/uL BMP 11/02/18 11/03/18 12:04 01:22 Sodium 141 140 Potassium 3.9 3.8 Chloride 106 108 H Carbon Dioxide 27 25 BUN 8 8 Creatinine 0.94 0.84 Glucose 101 H 74 Calcium 9.3 8.8 Cardiac Enzymes 11/02/18 11/02/18 11/02/18 Range/Units 12:04 13:47 19:42 Troponin I < 0.015 0.020 0.016 (0-0.045) ng/ml 11/03/18 Range/Units 01:22 Troponin I 0.021 (0-0.045) ng/ml Liver Function 11/02/18 Range/Units 12:04 Total Bilirubin 0.4 (0.2-1) mg/dl AST 46 H (15-37) U/L ALT 56 (12-78) U/L Alkaline Phosphatase 111 (45-117) U/L Albumin 4.2 (3.4-5.0) gm/dl Medications Administered Current Inpatient Medications Acetaminophen (Tylenol) 650 mg PO Q4H PRN PRN Reason: Pain or Fever Stop: 12/02/18 18:14 Last Admin: 11/03/18 09:52 Dose: 650 mg Documented by: Al Hydrox/Mg Hydrox/Simethicone (Maalox) 15 ml PO Q6H PRN PRN Reason: Heartburn Stop: 12/02/18 20:48 Last Admin: 11/02/18 20:59 Dose: 15 ml Documented by: Aspirin (Ecotrin Ectab) 81 mg PO QAM [facility] Stop: 12/03/18 08:59 Last Admin: 11/03/18 08:07 Dose: 81 mg Documented by: Colestipol HCl (Colestid) 1 gm PO DAILY@1000,2200 [facility] Stop: 12/02/18 21:59 Last Admin: 11/03/18 09:52 Dose: 1 gm Documented by: Dicyclomine HCl (Bentyl) 10 mg PO QID PRN PRN Reason: Stomach Upset Stop: 12/02/18 20:39 Enoxaparin Sodium (Lovenox) 40 mg SQ QAM [facility] Stop: 12/03/18 08:59 Last Admin: 11/03/18 08:07 Dose: Not Given Documented by: Morphine Sulfate (Morphine Sulfate) 2 mg IV Q30M PRN PRN Reason: Chest Pain Stop: 11/16/18 18:14 Nitroglycerin (Nitrostat) 0.4 mg SL UD PRN PRN Reason: Chest Pain Stop: 12/02/18 18:14 Ondansetron HCl (Zofran) 4 mg IV Q6H PRN PRN Reason: Nausea Stop: 12/02/18 18:14 Pantoprazole Sodium (Protonix) 40 mg PO DAILY [facility]; Protocol Stop: 12/02/18 20:59 Last Admin: 11/03/18 08:07 Dose: 40 mg Documented by: Polyethylene Glycol (Miralax Powder Packet) 17 gm PO DAILY PRN PRN Reason: Constipation Stop: 12/02/18 18:14 Ursodiol (Actigall) 600 mg PO BID [facility] Stop: 12/02/18 20:59 Last Admin: 11/03/18 08:07 Dose: 600 mg Documented by: Zolpidem Tartrate (Ambien) 5 mg PO HS PRN PRN Reason: Insomnia Stop: 12/02/18 20:48 Last Admin: 11/02/18 20:59 Dose: 5 mg Documented by: (1) Chest pain Chest pain type: unspecified Qualified Code(s): R07.9 - Chest pain, unspecified
--- NOTE | 2018-11-03 12:30 | Post Operative Brief Note ---
Cardiology Brief Post Op Date of Surgery November 03, 2018 Procedure nonischemic exercise stress echocardiogram recommend treatment for esophageal spasm no cardiac f/u necessary Herb Grower Mark Canales DO Cheese Specialist none Estimated Blood Loss 0 Findings See Below
--- NOTE | 2018-11-03 13:06 | Consultation Report ---
DATE OF CONSULTATION: 11/03/2018 INPATIENT CARDIOLOGY CONSULTATION CONSULTATION REQUESTED BY: Dr. Dowling. REASON FOR CONSULTATION: Chest pain. HISTORY OF PRESENT ILLNESS: Ms. Doyle is a very pleasant 68-year-old woman who does not follow with our cardiology practice routinely. She presented to [facility] with complaints of chest and throat discomfort. Since yesterday while doing her normal daily activities, she developed pressure in her chest. She described it as again a pressure sensation substernally that radiated up into her throat. She does carry a history of esophageal spasm, which has caused chest discomfort in the past and she notes that her esophageal spasm pain is similar; however, the pain yesterday was much more severe and she became concerned and came into the Emergency Department. Upon arrival, her initial workup showed some lateral ST segment depressions that resolved on repeat EKG, cardiac enzymes were negative and she was admitted to telemetry. She states that her discomfort stayed stable throughout the night and she ranks as 1/10 on a pain scale. She denies any associated symptoms with it and otherwise is feeling well. PAST SURGICAL HISTORY: 1. Bilateral total knee replacements. 2. Colonoscopies. 3. Multiple upper endoscopies. 4. Laparoscopic cholecystectomy. 5. Hysterectomy. 6. Spinal surgery. MEDICAL ILLNESSES: 1. Esophageal spasm. 2. GERD. 3. Migraine. 4. Dyslipidemia. 5. Irritable bowel. FAMILY HISTORY: Denies any premature coronary artery disease or sudden cardiac . Both parents had heart disease in their 70s. SOCIAL HISTORY: Denies any alcohol, tobacco or recreational drug use. She is and lives at home with her . She has 3 children who are in good health. 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 REVIEW OF SYSTEMS: As per HPI. All other review of systems reviewed and negative at this time. ALLERGIES: 1. ADHESIVES. 2. LATEX. 3. MACROBID. 4. STATINS. 5. NORTRIPTYLINE. 6. OMEPRAZOLE. 7. BACTRIM. 8. TRAMADOL. MEDICATIONS AN OUTPATIENT: 1. Colestid b.i.d. 2. Dexilant. 3. Bentyl. 4. Actigall. PHYSICAL EXAMINATION: VITAL SIGNS: Temperature 36.5, pulse 66, respiratory rate 12, blood pressure 128/81. GENERAL: Awake, alert, oriented x3 in no acute distress. HEENT: Normocephalic, atraumatic. Pupils equal, round, reactive to light and accommodation. Extraocular muscles intact. Anicteric sclerae. Moist mucous membranes. NECK: No JVD, no bruit. CARDIOVASCULAR: Regular. No S4. Normal S1 and S2. No S3. Slight 2/6 mid to late systolic ejection murmur greatest at the right sternal border second intercostal space with radiation to bilateral carotids. No rubs. PULMONARY: Clear to auscultation bilaterally. No rales, rhonchi, or wheezing. ABDOMEN: Bowel sounds x4, soft. No rebound, guarding, tenderness. No organomegaly. EXTREMITIES: No clubbing, cyanosis or edema. +2 pedal pulses bilaterally. SKIN: Warm and dry. TEST RESULTS: Exercise stress echocardiogram performed in 02/2018 was read as negative for inducible ischemia. Equivocal EKG changes were noted. Baseline echocardiogram showed normal LV chamber size and wall thickness, normal LV systolic function, EF 55-59%, grade 1 diastolic dysfunction, mild aortic valve sclerosis without stenosis. Exercise stress echocardiogram was nonischemic, normal heart rate and blood pressure response to exercise. Frequent PACs asymptomatic during exercise. Average exercise tolerance. IMPRESSION: 1. Chest pain with nonischemic exercise stress echocardiogram. 2. Longstanding history of esophageal spasm. 3. Frequent PACs with exercise asymptomatic. RECOMMENDATIONS: It was my pleasure to see Ms. Doyle in consultation today. From a cardiac standpoint, no further cardiac testing or intervention is necessary. Her stress test was nonischemic, so I believe the most prudent course of action will be for further treatment of her esophageal spasm and consideration may be given to addition of calcium channel blockers. In terms of her asymptomatic PACs, she was counseled that they are benign ectopy and that no intervention is necessary; however, should the calcium channel chris be added, this may help suppress them. Should she become symptomatic I recommend addition of low dose beta chris. Otherwise, no further cardiac testing or followup is necessary. It is okay to discharge the patient to home from a cardiac standpoint.
[2018-11-03] MEDS: ALUMINUM/MAGNESIUM SUSP 30 ML UDC PO PRN (14:16)
--- NOTE | 2018-11-03 15:44 | Discharge Summary ---
Date of Service November 03, 2018 Admission HPI Per Admitting Provider 68 yo F nonsmoker presents with a sensation of chest pressure with radiation to throat and a feeling of not being able to take a complete deep breath despite no overt hypoxia. This is in the setting of more profound fatigue since two weeks ago. She has noticed the sensation of pressure since yesterday and it is still present. There is no lightheadedness, nausea, vomiting, pain. Palpitations are being reported. She does state that her symptoms are worse with exertion, but beyond that they are poorly described. She doesn't feel there is any relationship to food and she denies that this is the same pain as an esophageal spasm. She has a h/o GERD and takes Dexilant for this. She has a h/o IBS controlled with diet and Bentyl and Colestipol. She has a h/o recurrent choledocholithiasis and had a perforation as a complication of ERCP in 2007, which has made her skittish since that time. She has taken domperidone in the past for symptom relief and is now on ursodiol. She has a h/o idiopathic gastroparesis. In the ER, EKG is nonischemic and troponin is negative. ASA and GI cocktail were given without successful relief of her symptoms. Admission Exam Per Admitting Provider Physical Exam: CONSTITUTIONAL: WNWD, vitals as above, generally well- appearing EYES: PERRL, normal conjunctivae, no scleral icterus ENT: oropharynx clear, MMM RESPIRATORY: clear to auscultation bilaterally, no crackles, rales or wheezes, normal respiratory effort CARDIOVASCULAR: regular rate and rhythm, S1 and 2 heard without murmurs, ga llops or rubs, no JVD, no peripheral edema CHEST: inspection of chest was normal GASTROINTESTINAL: soft, nontender, nondistended MUSCULOSKELETAL: strength 5/5 throughout, head is normocephalic and atraumatic, neck supple, normal palpation of chest wall without tenderness SKIN: warm and dry NEUROLOGIC: CN 2-12 grossly intact, no sensory deficit, normal cognition, normal speech, no tremor. No gross focal deficits. PSYCHIATRIC: alert cooperative and oriented to person, place and time. Principal Diagnosis Chest pain, no ACS and nonischemic exercise stress echocardiogram Discharge Exam Constitutional well developed and well nourished; no acute distress and not ill appearing Eyes PERRL, conjunctivae normal, anicteric sclerae ENMT external ear and nose normal, oropharynx normal Neck trachea midline, no thyromegaly Respiratory normal respiratory effort Auscultation: lungs clear to auscultation bilaterally Cardiovascular Rate/Rhythm: regular rate and regular rhythm Heart Sounds: no murmur Gastrointestinal (Abdomen) Inspection/Auscultation: abdomen normal to inspection Percussion/Palpation: abdomen soft Neurologic patellar DTR's 2+ bilat, sensation intact Lymphatic no cervical or axillary lymphadenopathy Discharge Data Allergies Allergy/AdvReac Type Severity Reaction Status Date / Time adhesive Allergy Unknown RASH Verified 11/02/18 12:34 latex Allergy Unknown UNKNOWN Verified 11/02/18 12:34 nitrofurantoin AdvReac Unknown STOMACH Verified 11/02/18 12:34 UPSET [id number]-Trk Reductase AdvReac Muscle Pain Unverified 11/02/18 12:35 Inhibitor Consultations 11/02/18 15:16 ED Decision to Admit Stat 11/02/18 18:15 Consult Cardiology Routine Consult Case Management - Discharge Planning Routine Hospital Course (1) Chest pain: As per admission :atypical symptoms since exerting herself yesterday that may be concerning for ACS. She describes the recent fatigue, and chest pressure sensation that is constant since yesterday where when she takes a deep breath, she feels like she can't fully inflate her lungs. She describes the sensation of choking associated with this. No other associated symptoms are present. Age and dyslipidemia are risk factors. No early CAD in family but father did have an [place] in his 70s, She is a lifelong nonsmoker who is active. Initial workup is negative for acute ischemia including trop and EKG, however, symptoms are still present. No nitro has been given and she is opting for morphine to try. Cont Nitro PRN and Morphine PRN chest pressure symptoms. Cardiology consulted. Patient had recent DSE in 02/2018, so defer to them for the need for further risk stratification. Monitor on telemetry for any arrhythmias that may explain her palpitations. Will also cont ASA, declines statin. 11/03 Denies any symptoms at rest Remains hemodynamically stable Serial EKG and troponins are negative Appreciate cardiology input and recommendation We will have her stress test and if that is negative she will be discharged home this afternoon (2) Heart palpitations: Monitor on telemetry overnight, may consider beta chris therapy, but would defer to Cardiology on that. No significant EKG abnormalities and no arrhythmias on monitor No more palpitation (3) IBS (irritable bowel syndrome): Takes Bentyl PRN and Colestipol PRN. (4) GERD (gastroesophageal reflux disease): Suffers from esophageal spasms which are much different in severity and nature of pain. No recent spasms present. Uses Dexilant for acid suppression. Denies any dyspeptic symptoms (5) DVT prophylaxis: Lovenox Full Dispo-monitor on telemetry overnight. To home when medically stable. Likely be discharged this afternoon following stress test Total Time Total Time Spent Total Time Spent (In Minutes): 35 minutes Total Time Includes: Examination of the Patient, Discharge Planning, Medication Reconciliation and Communication With Other Providers Discharge Plan Discharge Items Patient Disposition: Home - Self-Care Reason For Visit: CHEST PAIN Discharge Diagnosis: Chest pain, no ACS and nonischemic exercise stress echocardiogram Condition: Good Discharge Goals: Decrease discomfort, Improve function and Increase independence Activity: Resume your previous activity Non-emergency contact: Primary Care Provider Call non-emergency contact if: you have any medication questions and your symptoms worsen Follow-up/Referrals: Olga Stover, [Primary Care Provider] - (Your doctor's office will call with an appointment within 7 days) Diet: Heart Healthy Addtl Provider Instructions: No new medications were prescribed. In case she becomes symptomatic with cardiac symptoms, she may be tried calcium and chris and/or small dose of beta-chris in future as per recommendation from the plugging machine operator. Prescriptions: Continued ursodiol 300 mg capsule 600 mg PO BID RF: 0 colestipol 1 gram tablet 1 g PO BID RF: 0 dicyclomine 10 mg capsule 10 mg PO QID PRN (Reason: Stomach Upset) RF: 0 Dexilant 60 mg capsule,biphase delayed releas 60 mg PO DAILY RF: 0 Stand-Alone Forms: Call Back Authorization, [facility] Discharge Orders: Discharge Order (Routine); Ordered 11/03/18 Ordered By: Scottie Kunz Admission Data Admit Date/Time: 11/02/18 15:45 Attending Provider: Scottie Kunz Admit Provider: Meena Roque Primary Care Provider: Olga Stover Other Providers: Meena Roque ; Mark Canales Service: Telemetry Medical Other Interventions: Discharge Summary Assessment (RN) Last Done: 11/03/18 14:27 DC Date/Time DO NOT enter until pt leaves facility: 11/03/18 14:47
== END 2018-11-03 14:47 | disposition home or self-care (01) ==
LOC: ED 11:41 → 2N 11:41